=== PATIENT | female | born 1980 | race Caucasian/White ===

== ENCOUNTER 2020-08-03 01:44 | Emergency (ER) | payer BC ==
[2020-08-03] MEDS ORDERED: KETOROLAC 30 MG/ML VIAL IVP STA (02:20)
[2020-08-03] MEDS ORDERED: SODIUM CHLORIDE 0.9% 1,000 ML IV STA (02:20)
--- NOTE | 2020-08-03 02:24 | ED Physician Documentation ---
PD HPI CHEST PAIN - Stated complaint Stated Complaint: LT SIDE PX - Chief complaint Chief Complaint: Abd Pain - History obtained from History obtained from: Patient - Additional information Additional information: Patient comes emergency department chief complaint of left-sided chest pain that is mainly lateral, but wraps around under her left breast. She states she is also had what feels like a "nerve pain" in her left shoulder. She states the pain is sharp in the shoulder and can be sharp or achy in the chest. It comes and goes. She states it hurts worse when she takes a deep breath. Patient states that the pain started today and seems to gotten worse over the course of the day. No fevers or chills. No nausea or vomiting. Patient states she does not feel as though the pain is in her abdomen. Patient has a positive family history for both kidney stones and DVT, though she has never been diagnosed with either these herself. 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 H/o cholecystectomy and benign liver mass. No other complaints at this time. No rash in the area. Patient states she hasn't really noticed a particular sensitivity to light touch. Review of Systems Ten Systems: 10 systems reviewed and negative Constitutional: reports: Reviewed and negative Eyes: reports: Reviewed and negative Ears: reports: Reviewed and negative Nose: reports: Reviewed and negative Throat: reports: Reviewed and negative Cardiac: reports: Chest pain / pressure. denies: Pedal edema Respiratory: reports: Reviewed and negative. denies: Dyspnea GI: reports: Reviewed and negative : reports: Reviewed and negative Skin: reports: Reviewed and negative Musculoskeletal: reports: Reviewed and negative Neurologic: reports: Reviewed and negative Psychiatric: reports: Reviewed and negative Endocrine: reports: Reviewed and negative Immunocompromised: reports: Reviewed and negative PD PAST MEDICAL HISTORY - Present Medications Home Medications: Ambulatory Orders Medication Instructions Recorded Confirmed Drospirenone [Slynd] 4 mg PO DAILY 08/03/20 08/03/20 HYDROcod/ACETAM 5/325 [[place] 5/325] 1 - 2 tablet PO Q6H PRN #14 tablet 08/03/20 Levothyroxine Sodium 175 mcg PO 08/03/20 [Levothyroxine] Metoprolol Succinate [Toprol Xl] 25 mg PO DAILY 08/03/20 08/03/20 Pantoprazole Sodium 40 mg PO DAILY PRN 08/03/20 08/03/20 - Allergies Allergies/Adverse Reactions: Allergies Allergy/AdvReac Type Severity Reaction Status Date / Time No Known Drug Allergies Allergy Verified 08/03/20 02:14 PD ED PE NORMAL - Vitals Vital signs reviewed: Yes - General General: Alert and oriented X 3, No acute distress, Well developed/nourished - HEENT HEENT: Atraumatic, PERRL, EOMI, Moist mucous membranes - Neck Neck: Supple, no meningeal sign - Cardiac Cardiac: RRR, No murmur, Strong equal pulses - Respiratory Respiratory: No respiratory distress, Clear bilaterally - Abdomen Abdomen: Soft, Non tender, Non distended - Back Back: No CVA TTP - Derm Derm: Normal color, Warm and dry, No rash - Extremities Extremities: No deformity, Normal ROM s pain, No edema, No calf tenderness / cord - Neuro Neuro: Alert and oriented X 3, leadership program intern 2-12 intact, No motor deficit, No sensory deficit, Normal speech - Psych Psych: Normal mood, Normal affect PD ED PE EXPANDED - Free text exam Free text exam: Mild CW tenderness under L breast and on L lateral rib cage. Results - Vitals Vitals: Oxygen O2 Source Room air - EKG (time done) 0221 Rate: Rate (enter#) (118) Rhythm: Sinus tachycardia [place]: Normal Intervals: Normal [place] QRS: Normal Ischemia: Normal ST segments Computer interpretation: Agree with computer - Labs Labs: Laboratory Tests 08/03/20 08/03/20 08/03/20 02:04 02:04 02:04 WBC 12.7 H RBC 4.64 Hgb 14.7 Hct 42.5 MCV 91.6 MCH 31.7 H MCHC 34.6 RDW 11.2 L Plt Count 368 MPV 9.8 Neut # (Auto) 8.6 H Lymph # (Auto) 3.0 [place] # (Auto) 0.9 Eos # (Auto) 0.2 Baso # (Auto) 0.1 Absolute Nucleated RBC 0.00 Nucleated RBC % 0.0 D-Dimer 315.6 H Sodium 141 Potassium 3.6 Chloride 102 Carbon Dioxide 27 Anion Gap 12.0 BUN 16 Creatinine 0.7 Estimated GFR (MDRD) 93 Glucose 112 H Calcium 9.7 Total Bilirubin 0.5 AST 15 ALT 15 Alkaline Phosphatase 58 Total Protein 8.4 H Albumin 4.3 Globulin 4.1 Albumin/Globulin Ratio 1.0 Lipase 30 - Rads (name of study) CXR Radiology: Final report received, EMP read indepedently, See rad report (L base atelectasis) CTA chest Radiology: Final report received, EMP read indepedently, See rad report PD MEDICAL DECISION MAKING - ED course Complexity details: reviewed results, re-evaluated patient, considered differential, d/w patient ED course: Pt was worked up with labs, including d-dimer, EKG, and CXR. D-dimer showed moderate elevation. Mild L base atelectasis on CXR. Pt was given IV fluids and worked up further with CTA chest, which was negative. I d/w pt that no emergent condition had been identified. Her tachycardia had improved somewhat on re-pam luation. I have d/w her that she may be suffering from pleurisy, or she may be developing shingles. We have also discussed the possibility of chest wall pain. We have discussed the need for follow-up with cardiology, with whom the pt is already established, if her tachycardia persists beyond the next several days. We have discussed the usual indications for return. Departure - Departure Disposition: 01 Home, Self Care Clinical Impression: Acute chest wall pain, Atelectasis Condition: Stable Instructions: Tachycardia, ED Chest Pain Costochondritis Prescriptions: HYDROcod/ACETAM 5/325 [[place] 5/325] 1 - 2 tablet PO Q6H PRN #14 tablet PRN Reason: Pain Comments: Your laboratory studies showed a moderate elevation 3 D-dimer, a lab that can sometimes indicate a blood clot. Because this lab value can also be elevated for other reasons, it generally is used as an indicator of whether or not further testing needs to be done. Since your D-dimer was elevated, we did a CT scan of the chest with IV contrast, which is the gold standard for evaluation of possible blood clot. This was negative not only for a pulmonary embolism, or blood clot, but it also did not show any other concerning findings. You have a slight bit of collapse of the air cells the very base of your left lung, and this is most likely from not breathing deeply due to the discomfort you are having over there. Please be sure that you regularly take deep breaths, even if you have some discomfort, to reinflate those air cells. It is not clear exactly what is causing your pain. You may have some inflammation and irritation of the chest wall itself, or you could have an inflammation of the lining of the chest cavity, which is called pleurisy. It is also possible that you may be on the early end of a shingles outbreak, as sometimes will have pain preceding the outbreak of the rash. If you do break out into a rash of small blisters, you may be seen again in the emergency department or by your doctor to discuss being put on an antiviral medication. However, if you do end up with shingles, your body ultimately does have to fight this off on its own. As far as your elevated heart rate, we have not found any emergent condition causing this at this time. Given your history of sustained elevated heart rates in the past, it would be advisable that if your heart rate does not return to normal by the end of the week, you should consider seeing a dope weigh operator again for further evaluation. Discharge Date/Time: 08/03/20 05:30
[2020-08-03 02:31] LABS: BASOPHILS # (AUTO) 0.1 10^3/uL (0.0-0.1); BASOPHILS % (AUTO) 0.4 %; EOSINOPHILS # (AUTO) 0.2 10^3/uL (0.0-0.7); EOSINOPHILS % (AUTO) 1.6 %; HCT - HEMATOCRIT 42.5 % (37.0-47.0); HGB - HEMOGLOBIN 14.7 g/dL (12.0-16.0); LYMPHOCYTES % (AUTO) 23.5 %; MEAN CORPUSCULAR HEMOGLOBIN 31.7 pg (27.0-31.0); MEAN CORPUSCULAR HGB CONC 34.6 g/dL (32.0-36.0); MEAN CORPUSCULAR VOLUME 91.6 fL (81.0-99.0); MEAN PLATELET VOLUME 9.8 fL (7.9-10.8); MONOCYTES # (AUTO) 0.9 10^3/uL (0.0-1.0); MONOCYTES % (AUTO) 7.1 %; NEUTROPHILS # (AUTO) 8.6 10^3/uL (1.5-6.6); NEUTROPHILS % (AUTO) 67.1 %; PLT - PLATELET COUNT 368 10^3/uL (130-450); RED BLOOD COUNT 4.64 10^6/uL (4.20-5.40); RED CELL DISTRIBUTION WIDTH 11.2 % (12.0-15.0); WHITE BLOOD COUNT 12.7 x10^3/uL (4.8-10.8)
[2020-08-03 02:36] LABS: ALBUMIN 4.3 g/dL (3.2-5.5); BILIRUBIN,TOTAL 0.5 mg/dL (0.2-1.0); CALCIUM 9.7 mg/dL (8.5-10.3); CREATININE 0.7 mg/dL (0.4-1.0); POTASSIUM 3.6 mmol/L (3.5-5.0); TOTAL PROTEIN 8.4 g/dL (6.7-8.2)
[2020-08-03] MEDS ORDERED: IOVERSOL 320 100 ML VIAL IVP ONE ×2 (03:03→03:39)
[2020-08-03] MEDS ORDERED: DEXAMETHASONE 10 MG/ML VIAL IV STA (04:37)
[2020-08-03 04:38] VITALS: BP 115/74
[2020-08-03] MEDS ORDERED: HYDROcod/ACETAM 5/325 MG TABLET PO STA (05:06)
--- NOTE | 2020-08-03 08:18 | XRAY Report ---
PROCEDURE: Chest 1 View X-Ray INDICATIONS: Chest pain TECHNIQUE: One view of the chest was acquired. COMPARISON: None. FINDINGS: Surgical changes and devices: None. Lungs and pleura: Lung volumes are slightly diminished bilaterally with associated left basilar atel ectasis. Mild eventration left hemidiaphragm. No pleural effusions or pneumothorax. No focal consolid ation. Mediastinum: Mediastinal contours appear normal. Heart size is normal. Bones and chest wall: No suspicious bony lesions. Overlying soft tissues appear unremarkable. IMPRESSION: Slightly diminished lung volumes with left basilar atelectasis. No focal consolidations. No acute car diopulmonary abnormalities. Consider dedicated upright PA and lateral views of the chest when patient is able. No significant discrepancy with initial interpretation by overnight radiologist. Reviewed by: Kory Cobb MD on 08/03/2020 8:17 AM PDT Approved by: Kory Cobb MD on 08/03/2020 8:17 AM PDT Station ID: [id number]
--- NOTE | 2020-08-03 08:33 | CT Report ---
PROCEDURE: ANGIO CHEST W/WO INDICATIONS: L CP, elev d-dimer, tachycardic CONTRAST: IV CONTRAST: Optiray 320 ml: 80 PO CONTRAST: *NO PO CONTRAST TECHNIQUE: After the administration of intravenous contrast, 2 mm thick sections acquired from the pulmonary api keke to the posterior costophrenic angles. 3-dimensional maximum intensity projection (MIP) coronal a nd sagittal reformats were then acquired through the thorax. For radiation dose reduction, the follow ing was used: automated exposure control, adjustment of mA and/or kV according to patient size. COMPARISON: Chest radiograph from earlier same day FINDINGS: Image quality: Excellent. Pulmonary arteries: Pulmonary arteries are normal in size, and demonstrate no intraluminal filling d efects to suggest central pulmonary embolism. Lungs and pleura: Lung volumes are diminished bilaterally with mild left greater than right. Lungs a re otherwise clear. No pleural effusions or pneumothorax. Central and peripheral airways are patent. Mediastinum: Heart size is normal, without pericardial effusion. Minimal atherosclerotic calcificati ons of the coronary arteries. No mediastinal or hilar adenopathy. Thoracic aorta is normal in calibe r and enhancement. Esophagus is normal in caliber, without hiatal hernia. Bones and chest wall: No suspicious bony lesions. Ribs and thoracic spine appear intact throughout. The thyroid is normal. No axillary or supraclavicular adenopathy. Abdomen: Status post cholecystectomy. Remainder the visualized upper abdominal solid organs appear u nremarkable in the early arterial phase of enhancement. IMPRESSION: 1. No evidence for acute pulmonary emboli. 2. Poor inspiratory effort. Mild left greater than right bibasilar atelectasis. Otherwise, no acute c ardiopulmonary abnormality seen. 3. Status post cholecystectomy. No significant discrepancy with initial interpretation by overnight radiologist. Reviewed by: Kory Cobb MD on 08/03/2020 8:32 AM PDT Approved by: Kory Cobb MD on 08/03/2020 8:32 AM PDT Station ID: [id number]
== END 2020-08-03 05:30 | disposition home or self-care (01) ==
LOC: ED 01:44
DX: R07.89 Other chest pain (principal); J98.11 Atelectasis; R00.0 Tachycardia, unspecified; R79.89 Other specified abnormal findings of blood chemistry; E03.9 Hypothyroidism, unspecified; Z86.79 Personal history of other diseases of the circulatory system; Z82.49 Family history of ischemic heart disease and other diseases of the circulatory system; Z90.49 Acquired absence of other specified parts of digestive tract
CPT/HCPCS: 36415; 71045; 71275; 80053; 83690; 85025; 85379; 93005; 96374; 96375; 99284; A9270; Q9967